=== PATIENT | female | born 1940 | race Caucasian/White ===

== ENCOUNTER 2022-01-09 06:29 | Inpatient (IN) | payer OTHER ==
[~2022-01-09] VITALS: Ht 160 cm; Wt 123.0 kg
[2022-01-09] VITALS (9 sets, daily range): BP systolic 104–130; BP diastolic 55–79
[~2022-01-09 06:29] MED LIST: AML5T PO; B-COCAP23 OR; CHOL100047 PO; DIPH25CA66 PO; FURO20TA3 PO; HYDR-4072 PO; LEVO150T10 PO; LOSA-69 PO; LOVA20TA4 PO; MONT5CHW23 PO; ONDA-155 PO
[2022-01-09] MEDS ORDERED: VANCOMYCIN HCL 1000 MG VL ONE ×2 (07:28→07:33)
[2022-01-09] MEDS ORDERED: BUPIVACAINE 0.25% INJ 50ML VIAL ONE (07:28)
[2022-01-09] MEDS ORDERED: KETOROLAC TROMETH 30 MG/ML 1ML VIAL ONE (07:30)
[2022-01-09] MEDS ORDERED: MORPHINE SULF PF 5 MG/10 ML VIAL ONE (07:31)
[2022-01-09] MEDS ORDERED: CELECOXIB 100 MG CAP ONE (07:32)
[2022-01-09] MEDS ORDERED: TRANEXAMIC ACID 20 ML ONE (07:32)
[2022-01-09] MEDS ORDERED: ACETAMINOPHEN IV 100 ML IV ONE (07:33)
[2022-01-09] MEDS ORDERED: PREGABALIN CAPSULE 75 MG CAP ONE (07:39)
[2022-01-09] MEDS ORDERED: TETRACAINE 1% INJ 2 ML VIAL IJ ONE (07:44)
[2022-01-09] MEDS ORDERED: MIDAZOLAM HCL 2MG/2ML 2ml VIAL (1mg/ml) ONE ×2 (07:45→08:01)
[2022-01-09] MEDS ORDERED: fentaNYL CITRATE 100 MCG/2 ML VL ONE (07:45)
[2022-01-09] MEDS ORDERED: PROPOFOL 10 MG/ML 20 ML IV ONE ×2 (08:01→09:33)
[2022-01-09] MEDS ORDERED: DexAMETHasone SOD PHOS 10MG/1ML VIAL INJ ONE (08:01)
[2022-01-09] MEDS ORDERED: HYDROmorphone HCL 2 MG/ML VL/or syr IV PRN ×2 (08:15→09:15)
[2022-01-09] MEDS ORDERED: ONDANSETRON HCL 4 MG/2 ML VIAL IV PRN ×2 (08:15→09:15)
[2022-01-09] MEDS ORDERED: MORPHINE SULFATE INJ 2 MG/ml SYRG IV PRN (08:15)
[2022-01-09] MEDS ORDERED: PREGABALIN CAPSULE 75 MG CAP PO ONE (08:15)
[2022-01-09] MEDS ORDERED: VANCOMYCIN 1GM/250ML 250 ML IV ONE (08:15)
[2022-01-09] MEDS ORDERED: NITROGLYCERIN 0.4 MG SL TAB SL PRN (08:15)
[2022-01-09] MEDS ORDERED: BISACODYL 5 MG EC TAB PO PRN (08:15)
[2022-01-09] MEDS ORDERED: CELECOXIB 100 MG CAP PO ONE (08:15)
[2022-01-09] MEDS ORDERED: ACETAMINOPHEN IV 1000 MG/100ML (10MG/ML) IV ONE (08:15)
[2022-01-09] MEDS ORDERED: HYDROcodone-ACET 10/325MG TAB PO PRN (08:15)
[2022-01-09] MEDS: LACTATED RINGER'S 1,000 ML IV SCH ×2 (09:01→22:00)
[2022-01-09] MEDS ORDERED: DexAMETHasone SOD PHOS 10MG/1ML VIAL INJ IV PRN (09:15)
[2022-01-09] MEDS ORDERED: diphenhdrAMINE HCL 50 MG/1 ML VL IV PRN (09:15)
[2022-01-09] MEDS ORDERED: NALOXONE HCL 0.4 MG/ML VIAL IV PRN (09:15)
[2022-01-09] MEDS ORDERED: NALBUPHINE HCL 10 MG/1ml INJECTION SUBCUT ONE (09:15)
[2022-01-09] MEDS: FUROSEMIDE 20 MG TAB PO SCH (10:00)
[2022-01-09] MEDS: ENOXAPARIN SOD 40 MG/0.4 ML SYRINGE SC SCH (10:00)
[2022-01-09] MEDS: VANCOMYCIN 1GM/250ML 250 ML IV SCH ×2 (10:00→22:12)
[2022-01-09] MEDS: LOSARTAN POTASSIUM 50 MG TAB PO SCH (10:00)
[2022-01-09] MEDS: PATIENTS OWN MEDICATION (Lovastatin 20 MG) PO SCH (10:00)
[2022-01-09] MEDS: oxyCODONE ER 10 MG TAB PO SCH ×2 (10:00→22:00)
[2022-01-09] MEDS: amLODIPine BESYLATE 5 MG TAB PO SCH (10:00)
[2022-01-09 10:49] LABS: Basophils # (auto) 0 10 ^3/uL (0-0.2); Eosinophils # (auto) 0.1 10 ^3/uL (0-0.8); Hemoglobin 8.5 g/dL (12.2-16.2); Mean Corpuscular Hgb Conc. 31.9 g/dL (32.0-36.0); Monocytes # (auto) 0.3 10 ^3/uL (0-1.3)
[2022-01-09 10:51] LABS: Basophils % (auto) 0.5 % (0.0-2.0); Hematocrit 26.7 % (36.0-46.0); Lymphocytes # (auto) 1.5 10 ^3/uL (0.4-5.4); Lymphocytes % (auto) 16.7 % (10.0-50.0); Mean Corpuscular Hemoglobin 25.9 pg (28.0-32.0); Mean Corpuscular Volume 81.3 fL (80.0-100.0); Monocytes % (auto) 3.1 % (0.0-12.0); Neutrophils # (auto) 7.1 10 ^3/uL (1.6-8.6); Neutrophils % (auto) 78.7 % (37.0-80.0); Red Blood Cells 3.28 10^6/uL (4.0-5.20); Red Cell Distribution Width 18.4 % (11.8-14.3)
[2022-01-09] MEDS: DOCUSATE SOD 100 MG CAP PO SCH ×2 (10:57→11:03)
[2022-01-09] MEDS: PANTOPRAZOLE 40 MG TAB PO SCH ×2 (10:59→11:03)
[2022-01-09] MEDS: CHOLECALCIFEROL (VITD3) 1,000UNIT=25mCg TAB PO SCH ×2 (11:00→11:03)
[2022-01-09] MEDS: MONTELUKAST SODIUM 10 MG TAB PO SCH ×2 (11:01→11:03)
[2022-01-09 11:07] LABS: INR 1.01 (0.9-1.15); Partial Thromboplastin Time 25.1 sec (23.6-33.0)
[2022-01-09 11:13] LABS: Albumin 2.7 g/dL (3.4-5.0); Potassium 4.8 mmol/L (3.5-5.1)
[2022-01-09 11:16] LABS: BUN/Creatinine Ratio 14.8; Bilirubin, Total 0.3 mg/dL (0.2-1.0); Total Protein 6.4 g/dL (6.4-8.2)
[2022-01-09] MEDS: SODIUM CHLOR 0.9% PF (SALINE LOCK) 10ML VIAL/SYR IV SCH ×2 (14:00→22:12)
[2022-01-09] MEDS: ONDANSETRON ODT 4 MG TAB PO SCH ×2 (14:00→22:00)
[2022-01-09] MEDS: diphenhdrAMINE HCL 25 MG CAP PO SCH (18:00)
[2022-01-09] MEDS ORDERED: NALOXONE HCL 0.4 MG/ML VIAL ONE (20:25)
[2022-01-10] VITALS (12 sets, daily range): BP systolic 104–141; BP diastolic 43–86
[2022-01-10] MEDS ORDERED: NALOXONE HCL 0.4 MG/ML VIAL ONE (00:24)
[2022-01-10 05:11] LABS: Hemoglobin 8.5 g/dL (12.2-16.2)
[2022-01-10 05:13] LABS: Hematocrit 26.5 % (36.0-46.0)
[2022-01-10 05:36] LABS: Potassium 5.4 mmol/L (3.5-5.1)
[2022-01-10 05:47] LABS: Albumin 2.7 g/dL (3.4-5.0); BUN/Creatinine Ratio 18.6; Bilirubin, Total 0.4 mg/dL (0.2-1.0); Total Protein 6.4 g/dL (6.4-8.2)
[2022-01-10] MEDS: ONDANSETRON ODT 4 MG TAB PO SCH ×3 (06:00→22:02)
[2022-01-10] MEDS: SODIUM CHLOR 0.9% PF (SALINE LOCK) 10ML VIAL/SYR IV SCH ×3 (06:10→22:00)
[2022-01-10] MEDS: LEVOTHYROXINE SODIUM 50 MCG TAB PO SCH (07:10)
[2022-01-10] MEDS: LACTATED RINGER'S 1,000 ML IV SCH ×2 (09:01→14:08)
[2022-01-10] MEDS: FUROSEMIDE 20 MG TAB PO SCH (10:00)
[2022-01-10] MEDS: DOCUSATE SOD 100 MG CAP PO SCH ×2 (10:00→22:00)
[2022-01-10] MEDS: PATIENTS OWN MEDICATION (Lovastatin 20 MG) PO SCH (10:30)
[2022-01-10] MEDS: ENOXAPARIN SOD 40 MG/0.4 ML SYRINGE SC SCH (11:18)
[2022-01-10] MEDS: amLODIPine BESYLATE 5 MG TAB PO SCH (11:18)
[2022-01-10] MEDS: LOSARTAN POTASSIUM 50 MG TAB PO SCH (11:19)
[2022-01-10] MEDS: oxyCODONE ER 10 MG TAB PO SCH ×2 (11:19→22:01)
[2022-01-10] MEDS: diphenhdrAMINE HCL 25 MG CAP PO SCH (17:12)
[2022-01-10] MEDS: KETOROLAC TROMETH 30 MG/ML 1ML VIAL IV PRN (18:01)
[2022-01-11] MEDS: LACTATED RINGER'S 1,000 ML IV SCH ×2 (00:28→10:15)
[2022-01-11] MEDS: KETOROLAC TROMETH 30 MG/ML 1ML VIAL IV PRN ×2 (04:08→20:29)
[2022-01-11 05:00] VITALS: BP 125/53
[2022-01-11 05:37] LABS: Hematocrit 27.1 % (36.0-46.0); Hemoglobin 8.3 g/dL (12.2-16.2)
[2022-01-11] MEDS: SODIUM CHLOR 0.9% PF (SALINE LOCK) 10ML VIAL/SYR IV SCH ×3 (06:16→21:08)
[2022-01-11] MEDS: LEVOTHYROXINE SODIUM 50 MCG TAB PO SCH (06:17)
[2022-01-11] MEDS: ONDANSETRON ODT 4 MG TAB PO SCH ×3 (06:17→22:00)
[2022-01-11 09:00] VITALS: BP 127/85
[2022-01-11] MEDS: CHOLECALCIFEROL (VITD3) 1,000UNIT=25mCg TAB PO SCH (09:12)
[2022-01-11] MEDS: PANTOPRAZOLE 40 MG TAB PO SCH (09:12)
[2022-01-11] MEDS: MONTELUKAST SODIUM 10 MG TAB PO SCH (09:12)
[2022-01-11] MEDS: ENOXAPARIN SOD 40 MG/0.4 ML SYRINGE SC SCH (09:13)
[2022-01-11] MEDS: LOSARTAN POTASSIUM 50 MG TAB PO SCH (10:00)
[2022-01-11] MEDS: amLODIPine BESYLATE 5 MG TAB PO SCH (10:47)
[2022-01-11] MEDS: FUROSEMIDE 20 MG TAB PO SCH (10:47)
[2022-01-11] MEDS: oxyCODONE ER 10 MG TAB PO SCH ×2 (10:48→21:08)
[2022-01-11] MEDS: DOCUSATE SOD 100 MG CAP PO SCH ×2 (11:11→21:08)
[2022-01-11 13:00] VITALS: BP 149/56
[2022-01-11 17:00] VITALS: BP 137/55
[2022-01-11] MEDS: diphenhdrAMINE HCL 25 MG CAP PO SCH (18:00)
[2022-01-11] MEDS: PATIENTS OWN MEDICATION (Lovastatin 20 MG) PO SCH (20:15)
[2022-01-11 22:00] VITALS: BP 105/42
[2022-01-12 05:00] VITALS: BP 127/51
[2022-01-12] MEDS: SODIUM CHLOR 0.9% PF (SALINE LOCK) 10ML VIAL/SYR IV SCH ×2 (05:33→14:52)
[2022-01-12] MEDS: ONDANSETRON ODT 4 MG TAB PO SCH (05:34)
[2022-01-12 05:57] LABS: Hematocrit 26.7 % (36.0-46.0); Hemoglobin 8.6 g/dL (12.2-16.2)
[2022-01-12] MEDS: LEVOTHYROXINE SODIUM 50 MCG TAB PO SCH (06:08)
[2022-01-12 08:00] VITALS: BP 123/50
[2022-01-12] MEDS: PATIENTS OWN MEDICATION (Lovastatin 20 MG) PO SCH (10:00)
[2022-01-12] MEDS: DOCUSATE SOD 100 MG CAP PO SCH (10:24)
[2022-01-12] MEDS: MONTELUKAST SODIUM 10 MG TAB PO SCH (10:24)
[2022-01-12] MEDS: amLODIPine BESYLATE 5 MG TAB PO SCH (10:24)
[2022-01-12] MEDS: FUROSEMIDE 20 MG TAB PO SCH (10:24)
[2022-01-12] MEDS: PANTOPRAZOLE 40 MG TAB PO SCH (10:25)
[2022-01-12] MEDS: oxyCODONE ER 10 MG TAB PO SCH (10:25)
[2022-01-12] MEDS: LOSARTAN POTASSIUM 50 MG TAB PO SCH (10:25)
[2022-01-12] MEDS: CHOLECALCIFEROL (VITD3) 1,000UNIT=25mCg TAB PO SCH (10:25)
[2022-01-12] MEDS: ENOXAPARIN SOD 40 MG/0.4 ML SYRINGE SC SCH (10:26)
[2022-01-12 12:00] VITALS: BP 118/55
[2022-01-12] MEDS ORDERED: ONDANSETRON ODT 4 MG TAB PO PRN (14:00)
[2022-01-12 14:54] VITALS: BP 118/55
== END 2022-01-12 16:15 | disposition home health service (06) | DRG 470 ==
LOC: SUR 06:29 → TELE 09:51 → TELE-CENTR 16:03
PROVIDERS: ADMIT Orthopaedic Surgery Adult Reconstructive Orthopaedic Surgery; ATTEND Orthopaedic Surgery Adult Reconstructive Orthopaedic Surgery
PROC: 8E0YXBZ Computer Assisted Procedure of Lower Extremity (ICD-10-PCS; 2022-01-09)
PROC: 0SRC0J9 Replacement of Right Knee Joint with Synthetic Substitute, Cemented, Open Approach (ICD-10-PCS; principal; 2022-01-09 07:55)
DX: M17.11 Unilateral primary osteoarthritis, right knee (principal); Z20.822 Contact with and (suspected) exposure to COVID-19; I10 Essential (primary) hypertension; J44.9 Chronic obstructive pulmonary disease, unspecified; Z98.84 Bariatric surgery status; E03.9 Hypothyroidism, unspecified
CPT/HCPCS: 36415; 73562; 80053; 82962; 85014; 85018; 85025; 85610; 85730; 86850; 86900; 86901; 97110; 97116; 97530; C1713; G0378; J0131; J1100; J1885; J2250; J2704; J3490; Q0162